=== PATIENT | female | born 1970 | race Caucasian/White ===

== ENCOUNTER 2020-12-18 18:22 | Emergency (ER) | payer OTHER ==
[~2020-12-18] VITALS: Ht 165.1 cm; Wt 61.6 kg
[2020-12-18] MEDS ORDERED: ZANA2CAP PO (18:36)
[2020-12-18] MEDS ORDERED: BENA25CA4 PO (18:36)
[2020-12-18] MEDS ORDERED: DILA2TAB6 PO (18:36)
[2020-12-18] MEDS ORDERED: ZOFR4TAB16 PO (18:36)
[2020-12-18] MEDS ORDERED: CLON0.5T17 PO (18:36)
[2020-12-18] MEDS ORDERED: TOPA100T12 PO (18:36)
[2020-12-18] MEDS ORDERED: MORP-69 PO (18:36)
[2020-12-18] MEDS ORDERED: SUMA100T2 PO (18:36)
[2020-12-18] MEDS ORDERED: DULO30CA9 PO (18:36)
[2020-12-18] MEDS ORDERED: dexameTHASONE 4 MG/ML 1ML VIAL (J1100 PER 1MG) IV ONE (19:00)
[2020-12-18] MEDS ORDERED: diphenhydrAMINE 50MG/ML VIAL (J1200) IV ONE (19:00)
[2020-12-18] MEDS ORDERED: NS 1,000 ML IV ONE (19:00)
[2020-12-18] MEDS ORDERED: KETOROLAC 30 MG/ML 1ML VIAL IV ONE ×2 (19:00→20:15)
[2020-12-18] MEDS ORDERED: HYDROMORPHONE HCL 0.5 MG/ 0.5 ML SYRINGE (J1170 PER 1) IV ONE ×2 (19:00→20:15)
[2020-12-18] MEDS ORDERED: ONDANSETRON 4MG/2ML VIAL IV ONE (19:00)
[2020-12-18] MEDS ORDERED: diphenhydrAMINE 50MG/ML VIAL (J1200) IV STA (20:46)
[2020-12-18] MEDS ORDERED: CYCLOBENZAPRINE 5MG TABLET PO ONE (21:00)
[2020-12-18 21:20] VITALS: BP 150/94
== END 2020-12-18 21:24 | disposition home or self-care (01) ==
LOC: M ED 18:22
DX: G50.0 Trigeminal neuralgia (principal); F43.10 Post-traumatic stress disorder, unspecified; Z79.899 Other long term (current) drug therapy; Z88.0 Allergy status to penicillin; Z91.040 Latex allergy status; Z91.048 Other nonmedicinal substance allergy status
CPT/HCPCS: 96361; 96374; 96375; 96376; 99284; J1100; J1170; J1200; J1885; J2405